=== PATIENT | female | born 1995 | race Caucasian/White ===

== ENCOUNTER 2024-08-04 10:52 | Emergency (ER) | payer OTHER ==
[~2024-08-04] VITALS: Ht 175.3 cm; Wt 79.4 kg
[2024-08-04 10:53] VITALS: O2SAT 98
[2024-08-04] MEDS: IBUPROFEN 600MG TABLET PO STA (12:41)
[2024-08-04] MEDS ORDERED: IBUP-2029 MT (12:48)
[2024-08-04] MEDS ORDERED: CYCL10TA21 MT (12:48)
[2024-08-04 13:06] LABS: BASOPHILS % 0.5 % (0.0-2.0); EOSINOPHILS % 4.5 % (0.0-5.0); HEMATOCRIT. 42.1 % (36.0-48.0); HEMOGLOBIN. 14.1 g/dL (12.0-16.0); MEAN CORPUSCULAR HEMOGLOBIN 29.3 pg (28.0-32.0); MEAN CORPUSCULAR HGB CONC 33.5 g/dL (31.0-37.0); MEAN CORPUSCULAR VOLUME 87.3 fL (81.0-99.0); PLATELET 273 x1000/uL (130-400); RED BLOOD CELL COUNT 4.82 mill/uL (4.2-5.4); RED CELL DISTRIBUTION WIDTH 13.3 % (11.6-14.6); WHITE BLOOD COUNT 6.1 x1000/uL (4.5-11.0)
[2024-08-04 13:16] LABS: CHLORIDE 109 mEq/L (98-107); SODIUM 142 mEq/L (136-145)
[2024-08-04 13:17] LABS: CALCIUM 9.3 mg/dL (8.7-10.4); CARBON DIOXIDE 26 mEq/L (21-32)
[2024-08-04 13:20] VITALS: BP 134/84; PULSE 76; RESP 19; TEMP 37; O2SAT 99
[2024-08-04 13:22] LABS: CREATININE 0.8 mg/dL (0.6-1.0); GLUCOSE 99 mg/dL (70-105); UREA NITROGEN BLOOD 7 mg/dL (9-23)
== END 2024-08-04 13:24 | disposition home or self-care (01) ==
LOC: ER 10:52
DX: R10.11 Right upper quadrant pain (principal)
CPT/HCPCS: 36415; 76705; 80048; 85025; 99284